=== PATIENT | female | born 1950 | race Caucasian/White ===

== ENCOUNTER 2024-10-08 10:58 | Day surgery (SDC) | payer MEDICARE, OTHER, SELFPAY ==
[2024-10-04 08:21] VITALS: BMI 21.6
[2024-10-08] VITALS (7 sets, daily range): BP systolic 115–175; BP diastolic 68–84; PULSE 71–89; RESP 10–20; TEMP 36.3–36.5; O2SAT 98–100; BMI 21.5
--- NOTE | 2024-10-08 | PATH_ITS ---
[facility] Accession Number: [id number] No. of containers..02 Tissue . 01 Material submitted: . PART A: endocervix - ENDOCERVICAL POLYP PART B: endometrium - ENDOMETRIAL CURRETTING . 01 Diagnosis: A. ENDOCERVICAL POLYP: Benign endocervical-type polyp (8 mm in greatest dimension); negative for significant atypia. . B. ENDOMETRIAL CURETTINGS: Focal cytologic atypia suggestive of, but not diagnostic of, low-grade squamous intraepithelial lesion / MEGHAN-1. Scant glandular elements; negative for significant atypia. Suboptimal for evaluation of glandular hyperplasia or neoplasia due to scant endometrial stromal component. Please see comment. [facility] 10/14/2024 0805 Local . 01 Comment: B. Due to the scant nature of endometrial tissue in this biopsy, it may not be entirely account representative of this patient's endometrium; additional sampling could be considered, if clinically appropriate. . 01 Electronically signed: . Sunita Olson MD, Pathologist NPI- [id number] . 01 Gross description: . A. Received in formalin, labeled with two patient identifiers and designated endocervical polyp, and consists of a 0.8 x 0.5 x 0.1 cm, jack, slightly mucoid, flattened, polypoid tissue which is inked, bisected, and entirely submitted in cassette A1. B. Received in formalin, labeled with two patient identifiers and designated EMC, and consists of a 2.5 x 2.0 x 0.6 cm aggregate of clotted blood, blood-tinged mucus, and jack soft tissue which is filtered and entirely submitted in cassette B1. ([id number]) /[facility] 10/09/2024 1355 Local . 01 Microscopic: . An immunohistochemical stain for p16 is performed to evaluate for block reactivity. The control stained with appropriate reactivity. . RESULTS: Block B1 P16: Negative for block immunostaining in regions of interest. . The absence of p16 block immunostaining mitigates against the presence of high risk HPV DNA in this biopsy. . * This test was developed and the performance characteristics were validated by [employer]. It has not been cleared or approved by the [place]. Food and Drug Administration. . 01 Pathologist provided ICD-10: N95.0, R93.89 . 01 CPT . 582731, 257556, C25008 Specimen Comment: A courtesy copy of this report has been sent to [facility] Pathology Performed at: [address] [address], [place], [place] [id number] MD Macario Tello MD Phone: [phone]
[2024-10-08] MEDS: LACTATED RINGERS 1,000 ML 42 ML IV (11:00)
--- NOTE | 2024-10-08 13:37 | PM.PREOP ---
Pre-operative Note Interval Note History & Physical reviewed/Exam performed by Physician: Yes Changes to H&P: No H&P completed within 30 days and has changed as indicated here:: 10/01/24 ASA Class (for procedural sedation): II
[2024-10-08] MEDS: SILVER NITRATE STICK 1 EACH TOP (14:20)
--- NOTE | 2024-10-08 14:23 | SUR.OPER ---
Lithotomy on padded OR bed, head on pillow, arms secured on padded arm boards at <90 degrees abduction. Legs secured in padded yellow fins stirrups.
[2024-10-08] MEDS: ONDANSETRON 4 MG/2 ML INJ IV (15:03)
--- NOTE | 2024-10-08 16:01 | SUR.PHASEII ---
Patient able to urinate post procedure
--- NOTE | 2024-10-29 16:18 | P.OP_ITS ---
Operative Date/Time/Diagnoses Date of procedure: 10/08/24 Pre-op diagnosis: PMB Post-op diagnosis: same Procedure & Clinicians Procedure: hysteroscopy, polypectomy, dilation and curettage Same procedure as scheduled: Yes Indications: PMB Surgeon: Nia Torres Click Yes if Unassisted: Yes Anesthesia Type: General Operative Notes Findings: endometrial polyp bilateral ostia visualized Closure Type: not applicable Specimen(s): other (endometrial polyp, endometrial curettings ) Estimated Blood Loss (mL): 5 Procedure in detail: Pt was taken to the operating room, transferred to OR table and anesthesia was induced with placement of LMA.? Pt had her legs placed in James stirrups and an exam under anesthesia was performed. The patient was prepped and draped in a sterile fashion.? A time out was performed. ?The bladder was emptied via straight catheter in sterile fashion.? A sterile speculum was inserted into the vagina.? The cervix was visualized and grasped anteriorly using a single tooth tenaculum.? The uterus sounded to 9 cm and the cervical os was serially dilated using Mayfield dilators up to 17f to allow for passage of the hysteroscope.? The 5mm 0 degree hysteroscope was then inserted into the uterus with findings as noted.? The hysteroscope was removed and the uterus was sharply curetted until a gritty texture was noted throughout.? 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 The speculum was removed and hemostasis was again noted to be excellent.?The tenaculum was removed and hemostasis was noted at insertion sites. The patient then had her legs taken out of stirrups.? The patient tolerated the procedure well and without difficulty.? The patient was awakened from anesthesia and taken to PACU in stable condition. Complications: none Post-operative Condition: stable Disposition: PACU Plan for aftercare: dc to home, routine postop f/u as scheduled
== END 2024-10-08 16:03 | disposition home or self-care (01) ==
PROVIDERS: PCP Physician Assistant; Referring Provider Obstetrics & Gynecology; Visit Provider Obstetrics & Gynecology
PROC: 0UDB8ZZ Extraction of Endometrium, Via Natural or Artificial Opening Endoscopic (ICD-10-PCS; CPT 58558; principal; 2024-10-08 12:45)
DX: N95.0 Postmenopausal bleeding (principal); R93.89 Abnormal findings on diagnostic imaging of other specified body structures; Z30.430 Encounter for insertion of intrauterine contraceptive device; N84.0 Polyp of corpus uteri
CPT/HCPCS: 58558; 58300; J1100; J2405; J2704; J3010